=== PATIENT | male | born 2000 | race African-American/Black ===

== ENCOUNTER 2025-05-04 07:35 | Emergency (ER) | payer BC ==
[~2025-05-04] VITALS: Ht 175.3 cm; Wt 72.6 kg
[2025-05-04 07:43] VITALS: TEMP 98.6
[2025-05-04] MEDS ORDERED: AMOX TR-K CLV1 EAC2 PO (09:09)
[2025-05-04 09:19] VITALS: PULSE 61; RESP 18; O2SAT 100
== END 2025-05-04 09:20 | disposition home or self-care (01) ==
LOC: ER 07:49
DX: S02.2XXA Fracture of nasal bones, initial encounter for closed fracture (principal); W50.0XXA Accidental hit or strike by another person, initial encounter; Y92.89 Other specified places as the place of occurrence of the external cause; F17.210 Nicotine dependence, cigarettes, uncomplicated
CPT/HCPCS: 70450; 70486; 72125; 99283